=== PATIENT | female | born 1985 | race Two or more races ===

== ENCOUNTER 2019-11-29 10:44 | Emergency (ER) | payer SELFPAY ==
--- NOTE | ~2019-11-29 | US_ITS ---
EXAMINATION: US OB <= 14 weeks fetus DATE: 11/29/2019 12:31 INDICATION: Nausea and vomiting. Pelvic pain. TECHNIQUE: Real-time transabdominal obstetric ultrasound. FINDINGS: No prior studies for comparison. The uterus measures 9.5 x 7.1 x 9.1 cm. There is an intrauterine gestational sac, with pole nahid ntified. The crown rump length measures 1.84 cm, which correlates with a estimated gestational age o f 8 weeks 2 days. heart tones are identified measuring 150 BPM. There is a 2 cm corpus luteal cyst of the left ovary. IMPRESSION: 1. SL IUP with an EGA of 8 weeks, 2 days (EDC by current ultrasound of 07/08/2020 2: 2 cm corpus luteal cyst of the left ovary.). Reviewed, dictated and finalized at location B. IMPRESSION: 1. SL IUP with an EGA of 8 weeks, 2 days (EDC by current ultrasound of 2: 2 cm corpus luteal cyst of the left ovary.).
[2019-11-29 10:47] VITALS: BP 97/43; PULSE 73; RESP 17; TEMP 36.6; O2SAT 100
[2019-11-29] MEDS: PROMETHAZINE HCL 25 MG/ML AMPUL 12.5 MG IV PUSH (11:29)
[2019-11-29] MEDS: SODIUM CHLORIDE 0.9% IV 2,000 ML 999 ML IV CONT (11:29)
[2019-11-29 11:38] LABS: Basophils Percent Auto 0.3 % (0.2-1.2); Eosinophils Percent Auto 0.1 % (0-4.4); Hematocrit 41.2 % (37.0-47.0); Hemoglobin 13.8 g/dL (12.0-15.0); Immature Granulocyte Absolute 0.02 K/mm3 (0.00-0.031); Immature Granulocyte Percent A 0.3 % (0-0.5); Lymphocytes Absolute Auto 2.24 K/mm3 (0.9-3.2); Mean Corpuscular HGB Conc 33.5 g/dl (32-36); Mean Corpuscular Hemoglobin 28.6 pg (26-34); Mean Corpuscular Volume 85.3 fl (80-100); Mean Platelet Volume 10.4 fl (7.4-10.4); Monocytes Absolute Auto 0.4 K/mm3 (0.1-0.6); Monocytes Percent Auto 5.3 % (2.6-8.5); Neutrophils Absolute Auto 5.3 K/mm3 (1.3-6.7); Platelet Count Result 266 k/mm3 (150-375); Red Blood Count 4.83 M/mm3 (4.2-5.4); Red Cell Distribution Width 12.1 % (11.5-14.5)
[2019-11-29 11:42] LABS: Add Urine Microscopic? YES; Appearance Urine Cloudy (Clear); Bacteria Urine Trace /hpf; Bilirubin Urine Negative (Negative); Blood Urine Negative (Negative); Color Urine Amber (Yellow); Glucose Urine UA Negative (Negative); Ketones Urine Trace mg/dL (Negative); Leukocyte Esterase Ur 2+ LEU/UL (Negative); Mucus Urine Heavy /lpf; Nitrate Urine Negative (Negative); Protein Urine 2+ mg/dL (Negative); Squamous Epithelial Cell Urine Many /hpf (Few)
[2019-11-29 11:54] LABS: Alanine Aminotransferase 54 U/L (4-35); Albumin Level 4.9 g/dL (3.5-5.1); Alkaline Phosphatase 52 U/L (38-126); Aspartate Amino Transferase 42 U/L (14-36); Bilirubin,Total 0.4 mg/dL (0.2-1.3); Blood Urea Nitrogen 10 mg/dL (7-17); Calcium 9.7 mg/dL (8.4-10.2); Carbon Dioxide 25 mmol/L (22-30); Chloride 100 mmol/L (98-107); Estimated Glomerular Filt Rate > 60; Glucose 92 mg/dL (65-105); Potassium 3.6 mmol/L (3.4-5.0); Sodium 135 mmol/L (137-145)
[2019-11-29 13:26] VITALS: BP 104/70; PULSE 65; RESP 15; O2SAT 100
--- NOTE | 2019-11-29 13:38 | ED.GENADULT ---
HPI - General Adult General Chief complaint: Nausea/Vomiting/Diarrhea Stated complaint: vomiting Time Seen by Provider: 11/29/19 11:05 History of Present Illness HPI narrative: Patient is a 34-year-old [place] female who presents the ER with nausea and vomiting in . Patient reports she had a positive test 1 month ago. She is a G3, P2 without any previous histories of issues with her . She does not have an OB here. No vaginal bleeding or discharge. She has no urinary frequency/urgency/dysuria. She has no home antiemetics. She does report some mild lower abdominal discomfort since she started vomiting about a week ago. Related Data Allergies Allergy/AdvReac Type Severity Reaction Status Date / Time No Known Allergies Allergy Verified 11/29/19 11:11 Review of Systems Review of Systems: All systems reviewed & are unremarkable except as noted in HPI and below Constitutional: Constitutional: Denies chills, Reports fatigue, Denies fever(s) and Denies weakness ENT: Denies nasal congestion and Denies sore throat Cardiovascular: Cardiovascular: Denies chest pain and Denies radiating jaw, neck or arm pain Respiratory: Respiratory: Denies cough, Denies dyspnea and Denies wheezing Gastrointestinal: Gastrointestinal: Reports abdominal pain, Denies diarrhea, Reports nausea and Reports vomiting Genitourinary: Genitourinary: Denies hematuria, Denies nocturia, Denies dysuria and Denies urinary incontinence PMF Past Medical History Medical History (Updated 11/29/19 @ 13:42 by Garret Rooney MD) Healthy female adult Surgical History Surgical History (Updated 11/29/19 @ 13:39 by Garret Rooney MD) No history of previous surgery Social History Social History (Updated 11/29/19 @ 13:39 by Garret Rooney MD) Smoking status: Never smoker Alcohol intake: never Substance use: never Gender identity (if verbalized by the patient): Female Exam Narrative: Exam Narrative: GENERAL: Well-appearing, well-nourished, and in no acute distress. HEAD: Normocephalic, atraumatic. EYES: PERRL and EOMI. CHEST: Clear to auscultation. No respiratory distress. HEART: Regular rate and rhythm. Normal peripheral pulses. ABDOMEN: Soft, mild suprapubic discomfort without rebound or guarding, nondistended, normal active bowel sounds. EXTREMITIES: Normal range of motion. No edema. SKIN: Warm, dry, no rash. NEURO: Alert and oriented x3. Course Course Emergency Course: Patient hydrated with 2 L of fluid. Received Phenergan for nausea. Feels better. Informed of results. Discharge home with follow-up with OB. Will place on Macrobid for possible UTI. Vital Signs Vital signs: Vital Signs Temperature 97.9 F 11/29/19 10:47 Pulse Rate 73 11/29/19 10:47 Respiratory Rate 17 11/29/19 10:47 Blood Pressure 97/43 L 11/29/19 10:47 Pulse Oximetry 100 11/29/19 10:47 Temperature 97.9 F 11/29/19 10:47 Pulse Rate 65 11/29/19 13:26 Respiratory Rate 15 11/29/19 13:26 Blood Pressure 104/70 11/29/19 13:26 Pulse Oximetry 100 11/29/19 13:26 Medical Decision Making Vital Signs Vital Signs: Vital Signs Temperature 97.9 F 11/29/19 10:47 Pulse Rate 73 11/29/19 10:47 Respiratory Rate 17 11/29/19 10:47 Blood Pressure 97/43 L 11/29/19 10:47 Pulse Oximetry 100 11/29/19 10:47 Temperature 97.9 F 11/29/19 10:47 Pulse Rate 65 11/29/19 13:26 Respiratory Rate 15 11/29/19 13:26 Blood Pressure 104/70 11/29/19 13:26 Pulse Oximetry 100 11/29/19 13:26 Lab Data Result diagrams: 11/29/19 11:24 11/29/19 11:24 Labs: Lab Results 11/29/19 11/29/19 11/29/19 Range/Units 11:24 11:24 11:25 WBC 8.0 (4.5-10.0) K/mm3 RBC 4.83 (4.2-5.4) M/mm3 Hgb 13.8 (12.0-15.0) g/dL Hct 41.2 (37.0-47.0) % MCV 85.3 (80-100) fl MCH 28.6 (26-34) pg MCHC 33.5 (32-36) g/dl RDW 12.1 (11.5-14.5) % Plt
== END 2019-11-29 14:20 | disposition home or self-care (01) ==
PROVIDERS: Emergency Provider Emergency Medicine
DX: O21.0 Mild hyperemesis gravidarum (principal); O23.41 Unspecified infection of urinary tract in pregnancy, first trimester; Z3A.08 8 weeks gestation of pregnancy
CPT/HCPCS: 36415; 76801; 80053; 81001; 81025; 85025; 87086; 96361; 96374; 99284; J2550; J7030